=== PATIENT | male | born 1980 | race Caucasian/White ===

== ENCOUNTER 2018-06-25 10:17 | Emergency (ER) | payer SELFPAY ==
[~2018-06-25] VITALS: Ht 188 cm; Wt 110.2 kg
[2018-06-25 10:20] VITALS: BP 139/79
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
[2018-06-25] MEDS ORDERED: NACL 0.9% 1,000 ML IV ONE (11:32)
[2018-06-25] MEDS ORDERED: MORPHINE SULFATE 4 MG/ML SYR IVP ONE (11:35)
[2018-06-25] MEDS ORDERED: FAMOTIDINE 20 MG/2 ML VIAL IVP ONE (11:35)
[2018-06-25] MEDS ORDERED: ONDANSETRON 4 MG/2 ML VIAL IVP ONE (11:35)
[2018-06-25] MEDS ORDERED: KETOROLAC 30 MG/ML VIAL IVP ONE (11:35)
[2018-06-25] MEDS ORDERED: PROMETHAZINE 25 MG/ML VIAL IM ONE (11:35)
[2018-06-25] MEDS ORDERED: METOCLOPRAMIDE 10 MG/2 ML INJ VIAL IVP ONE (11:35)
--- NOTE | 2018-06-25 12:11 | NUR ---
US AT BEDSIDE
[2018-06-25] MEDS: NACL 0.9% 2,000 ML IV SCH ×2 (12:21→12:22)
--- NOTE | 2018-06-25 12:45 | NUR ---
PT TAKEN TO RADIOLOGY VIA [facility]
[2018-06-25 12:54] LABS: BASOPHILS % (AUTO) 0.2 % (0.0-2.0); HEMATOCRIT 43.1 % (36-52); HEMOGLOBIN 14.1 g/dL (12.0-18.0); LYMPHOCYTES # (AUTO) 1.2 K/uL (2.0-11.5); LYMPHOCYTES % (AUTO) 6.8 % (20.5-51.1); MEAN CORPUSCULAR HEMOGLOBIN 31 pg (27-31); MEAN CORPUSCULAR HGB CONC 33 g/dL (33-37); MEAN CORPUSCULAR VOLUME 94.4 fL (80-94); MONOCYTES # (AUTO) 0.7 K/uL (0.8-1.0); MONOCYTES % (AUTO) 4.2 % (1.7-9.3); NEUTROPHILS # (AUTO) 15.6 K/uL (1.8-7.7); NEUTROPHILS % (AUTO) 88.8 % (42.2-75.2); PLATELET COUNT (AUTO) 282 K/uL (140-450); RED BLOOD CELL COUNT(AUTO) 4.57 MIL/uL (4.20-6.10); WHITE BLOOD COUNT (AUTO) 17.6 K/uL (4.8-10.8)
--- NOTE | 2018-06-25 13:00 | NUR ---
PT BACK FROM CT AT THIS TIME.
[2018-06-25 13:06] LABS: CARBON DIOXIDE 25.3 mmol/L (21-32); CREATININE 1.1 mg/dL (0.7-1.3); POTASSIUM 3.3 mmol/L (3.5-5.1)
[2018-06-25 13:11] LABS: PROTHROMBIN TIME 9.9 secs (10.8-13.4)
[2018-06-25 13:22] LABS: ALBUMIN 4.3 g/dL (3.4-5.0); TOTAL BILIRUBIN 0.9 mg/dL (0.0-1.0)
[2018-06-25 15:01] VITALS: BP 136/77
--- NOTE | 2018-06-25 15:01 | NUR ---
Patient discharged with v/s stable. Written and verbal after care instructions given and explained. Patient alert, oriented and verbalized understanding of instructions. Ambulatory with steady gait. All questions addressed prior to discharge. ID band removed. Patient advised to follow up with PMD. Rx of PROTONIX, FAMOTIDINE, REGLAN given. Patient educated on indication of medication including possible reaction and side effects. Opportunity to ask questions provided and answered.
[2018-06-25 16:05] LABS: APPEARANCE,URINE CLEAR (CLEAR); BILIRUBIN,URINE NEGATIVE (NEGATIVE); BLOOD, URINE 1+ (NEGATIVE); COLOR,URINE YELLOW (YELLOW); LEUKOCYTE ESTERASE ,URINE NEGATIVE (NEGATIVE); NITRITE, URINE NEGATIVE (NEGATIVE); UGLUCOSE NEGATIVE (NEGATIVE)
[2018-06-25 16:38] LABS: RBC,URINE 3-10 (FEW) /HPF (0-5); WBC,URINE 0-5 (RARE) /HPF (0-5); YEAST,URINE Rare /HPF (None Seen)
[2018-06-25 17:28] LABS: BARBITURATE, URINE NEG. ng/ml (NEG <=200); BENZODIAZEPINE, URINE NEG. ng/mL (NEG <=200); CANNABINOID, URINE POS. ng/mL (NEG <=50); COCAINE, URINE NEG. ng/mL (NEG <=300); OPIATE, URINE NEG. ng/mL (NEG <=2000); PHENCYCLIDINE SCREEN,URINE NEG. ng/mL (NEG <=25)
== END 2018-06-25 15:01 | disposition home or self-care (01) ==
LOC: MED 10:17
DX: K59.00 Constipation, unspecified (principal); R11.0 Nausea
CPT/HCPCS: 36415; 71045; 74176; 76705; 80053; 80305; 81001; 82150; 82977; 83605; 83690; 84484; 85025; 85610; 85730; 93005; 96374; 96375; 99284; J1885; J2270; J2405; J2550; J2765; J3490; J7030; Q0092; 81002